=== PATIENT | female | born 1970 | race Caucasian/White ===

== ENCOUNTER → 2017-08-17 | Outpatient (CLI) | payer BC ==
[~2017-08-17] MED LIST: ACET-1257 PO; ACET325T96 PO; DIPH-437 PO; FEXO5TAB2 PO; FLUT0.0529; LACT1CAP6 PO; MELA1TAB22 PO; MULTTAB58 PO
== END | disposition home or self-care (01) ==
LOC: C.LAB 16:55
PROVIDERS: ATTEND Chiropractor
DX: M79.1 Myalgia (principal)